=== PATIENT | male | born 1940 | race Caucasian/White ===

== ENCOUNTER 2018-04-07 15:14 | Inpatient (IN) | payer MEDICARE, MEDICAID ==
[~2018-04-07] VITALS: Ht 165.1 cm; Wt 67.7 kg
--- NOTE | ~2018-04-07 | DS ---
[place], [place] DISCHARGE SUMMARY NAME: DYAN OMER [facility] #: [id number] UNIT #: [id number] ROOM: 312 DOCTOR: YOJANA ASH MD BIRTHDATE: [birth year] DOS: 04/18/2018 CHIEF COMPLAINT: "My breakfast came late. I just got here about 5 days ago from [place]." HISTORY OF PRESENT ILLNESS: This is a 78-year-old white male who is known to me from his previous stay at [facility] in [place], [place]. The patient has had a significant and sudden alteration in mental status. Normally, he has been pleasantly confused, but within the last week or 2 prior to this admission, he has become increasingly verbally and physically aggressive, culminating in him putting his fist through a door. The patient has made threats to harm the nurses as well as other patients. He also wrapped a bowel movement in a napkin and gave it to his roommate. He has been urinating on the floor and in the radiators of the facility. Attempts to redirect him have only led to him becoming increasingly more combative. He is admitted now to rule out any organic factors in attempts to stabilize on medication. PAST MEDICAL HISTORY: Remarkable for normal pressure hydrocephalus, dementia and depression. ALLERGIES: He has no known allergies. SOCIAL HISTORY: He does not drink alcohol, use illicit drugs. He is a former cigarette smoker. FAMILY HISTORY: Both mother and father are , cause unknown. STRENGTHS: Good verbal skills, ambulatory. WEAKNESSES: Extreme confusion and poor coping skills. SUMMARY OF HOSPITAL COURSE: The patient was admitted to the unit where he was maintained on Namenda 10 mg b.i.d. Melatonin was discontinued and his Depakote was increased to 250 mg twice daily and 500 mg at bedtime, Remeron was maintained at 15 mg at bedtime. Namenda was augmented with Exelon patch 4.6 mg daily and this was rapidly titrated during his stay to its maximum dose of 13.3 mg daily. Risperdal 0.5 mg twice daily was given due to his severe agitation and mood lability as well as physical aggression. Risperdal was tolerated well without sedation, somnolence, extrapyramidal symptoms or tardive dyskinesia. The dose of the Risperdal was later increased to its maximum dose while he was here of 1 mg twice daily. With these medication changes in place, the patient did gradually improve. He remained pleasantly confused, but he was pleasant and redirectable. There were no further incidents of agitation or aggression. There is no mood lability. He tolerated the medicines well without sedation, somnolence, extrapyramidal symptoms or tardive dyskinesia and had improved sufficiently to be able to be returned back to [facility]. MENTAL STATUS AT DISCHARGE: The patient was alert and oriented to person, possibly place, although doubtful not to time. Mood does seem to be more euthymic. Affect appropriate. Speech rate and pattern were slow and [place], [place] DISCHARGE SUMMARY NAME: DYAN OMER [facility] #: [id number] UNIT #: [id number] ROOM: [facility] DOCTOR: YOJANA ASH MD BIRTHDATE: [birth year] deliberate. He lacks spontaneity. He remained grossly confused, but pleasantly so. Short-term memory was poor. 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 PLAN: All of his prescriptions have been printed and will be sent with him. He is medically and psychiatrically stable. I will follow him upon his readmission to [facility]. His biopsychosocial needs are adequately being met by the facility at large. YOJANA ASH MD CM:YADIRA 1012 1700 YOJANA ASH MD 04/28/18 0812 interface
--- NOTE | ~2018-04-07 | PN ---
[place], [place] PROGRESS NOTE NAME: DYAN OMER UNIT #: [id number] ROOM: 312 DOCTOR: YOJANA ASH MD BIRTHDATE: [birth year] DATE: 04/12/18 ADDENDUM 05/26/18935 DR. ASH: Above note reviewed. Agree with observations, recommendations, and overall treatment plan. YOJANA ASH MD CM:PNTRANS 5 YOJANA ASH MD 05/27/1832 ARMEN RICE MIS.LLR
--- NOTE | ~2018-04-07 | PN ---
[place], [place] PROGRESS NOTE NAME: DYAN OMER UNIT #: [id number] ROOM: 312 DOCTOR: YOJANA ASH MD BIRTHDATE: [birth year] DATE: 04/14/18 ADDENDUM 05/26/18935 DR. ASH: Above note reviewed. Agree with observations, recommendations, and overall treatment plan. YOJANA ASH MD CM:PNTRANS 5 YOJANA ASH MD 05/27/1833 ARMEN RICE MIS.LLR
--- NOTE | ~2018-04-07 | WRIGHTHP ---
[place], [place] PATIENT HISTORY AND PHYSICAL EXAM [id number] UN[facility] #: [id number] ROOM: 310 DOCTOR: YOJANA ASH MD BIRTHDATE: [birth year] DOS: 04/08/2018 CHIEF COMPLAINT: "My breakfast came late. I just got here about 5 days ago from [place]" HISTORY OF PRESENT ILLNESS: This is a 78-year-old white male known to me from his previous stay at [facility] in [place], [place]. The patient has had a sudden alteration in mental status. Normally, he has been pleasantly confused, but within the last week or 2 prior to this admission, he has become increasingly both verbally and physically aggressive, culminating in him putting his fist through a door. The patient has made threats to harm nurses as well as other patients. He also wrapped a bowel movement in a napkin and gave to his roommate. He has been urinating increasingly on the floor and in radiators at the facility. Attempts to redirect have only led to him becoming increasingly more combative with staff. He is admitted now to rule out further organic factors, to stabilize on medication, returning to the least restrictive environment when psychiatrically stable. PAST MEDICAL HISTORY: Very significant for a history of normal pressure hydrocephalus, dementia and depression. SOCIAL HISTORY: He does not drink alcohol. He does not use illicit drugs. He is a former cigarette smoker. FAMILY HISTORY: Both mother and father are , cause unknown. ALLERGIES: No known allergies. STRENGTHS: Good verbal skills, ambulatory. WEAKNESSES: Extreme confusion and poor coping skills. MENTAL STATUS: He is alert and oriented to person only. It is unclear if he realizes he is in the hospital. He is certainly not oriented to time stating that he has been here for 5 days and prior to this, he lived in [place], [place]. The patient was very disjointed in his thinking, having a hard time to formulate his thoughts. At times, he was able to form a full sentence. At other times, he would be derailed and fragmented. He was grossly delusional in his thinking. He was not agitated, although at times, he did seem a little bit on edge, but he self redirected. He does process information slowly and short term memory is quite problematic. DIAGNOSES: Major depression recurrent with psychotic features, intermittent explosive disorder and dementia, not otherwise specified. PLAN: I have maintained him on Namenda 10 mg b.i.d. I have discontinued his melatonin, increased his Depakote to 250 mg twice daily and 500 mg at bedtime, maintain his Remeron at 15 mg at bedtime. I will now augment the Namenda with Exelon patch 4.6 mg topically daily, targeting 13.3 mg a day and also add Risperdal 0.5 mg twice daily given the severity of his mood lability and [place], [place] PATIENT HISTORY AND PHYSICAL EXAM NAME: DYAN OMER UNIT #: [id number] ROOM: 310 DOCTOR: YOJANA ASH MD BIRTHDATE: [birth year] agitation. We will plan to check a valproic acid level early next week to determine if it is therapeutic. We will attempt to engage in individual and vera milieu activity determining then the least restrictive environment to which he can return post discharge. YOJANA ASH MD CM:HISPHYS:PATIENT HISTORY AND PHYSICAL EXAMINATION 1 YOJANA ASH MD 04/08/18 09 interface
--- NOTE | ~2018-04-07 | PN ---
[place], [place] PROGRESS NOTE NAME: DYAN OMER UNIT #: [id number] ROOM: 312 DOCTOR: YOJANA ASH MD BIRTHDATE: [birth year] DATE: 04/13/18 ADDENDUM 05/26/18935 DR. ASH: Above note reviewed. Agree with observations, recommendations, and overall treatment plan. YOJANA ASH MD CM:PNTRANS 5 YOJANA ASH MD 05/27/1832 ARMEN RICE MIS.LLR
--- NOTE | ~2018-04-07 | PR ---
[place], [place] PROGRESS NOTE [id number] UN[facility] #: [id number] ROOM: 312 DOCTOR: YOJANA ASH MD BIRTHDATE: [birth year] DOS: 04/15/2018 CHIEF COMPLAINT: "I would rather not go to breakfast now." SUMMARY OF THE VISIT: The patient was interviewed as he was resting on the bed that was not his own. He was lying in a position without covers on. As I engaged him, he reported he did not want to get up for breakfast. I did redirect stating that his bedroom was several rooms down where he could have sheets and covers and asked him if he would like to have assistance to go back to his room and he nodded in approval. Overall, his conversation with me today was rather pleasant. He offered no agitation or aggression and for the most part continues to be pleasantly confused. He does occasionally become somewhat resistive, but has been more and more redirectable. He outwardly is tolerating the current medication regimen well and I see no tardive dyskinesia, extrapyramidal symptoms, sedation or somnolence. MENTAL STATUS: He is alert and oriented to self, unclear if he knows place, it is very doubtful. He is certainly not oriented to time. Mood does seem to be relatively euthymic. Affect is more appropriate. There is no joesph, hypomania. There is no gross psychosis. Short term memory is very problematic. PLAN: I will go ahead and add Deplin to see if this could augment the effectiveness of his current medications by improving neurotransmitter synthesis. Otherwise, we will continue to engage him in individual and vera milieu activity with the ultimate plan to return back to [facility] when psychiatrically stable. YOJANA ASH MD CM:PNTRANS 08 143 YOJANA ASH MD 04/15/18 1430 interface
--- NOTE | ~2018-04-07 | PR ---
[place], [place] PROGRESS NOTE [id number] UN[facility] #: [id number] ROOM: 312 DOCTOR: MYRIAM FENG MD BIRTHDATE: [birth year] DOS: 04/15/2018 SUBJECTIVE: The patient seen and spoke with the staff. Per staff, the patient is doing fine. No behavior problems or issues. He is pleasantly confused. He is compliant with his medication. The patient was pleasant and cooperative. He was in his room on the bed, taking a nap. He got up when I called his name. He reports doing okay. He was confabulating. He was not in any distress. MENTAL STATUS EXAMINATION: Pleasant and cooperative. Described his mood as "okay." Affect, mood congruent. Thought processes with contemplation. He denied auditory or visual hallucination. No delusion or paranoia noted. He denied suicidal ideation, intent or plan. He also denied homicidal ideation, intent or plan. PLAN: 1. Continue current medication and care. 2. Continue redirection. 3. Supportive care. 4. Encourage activity in groups. MYRIAM FENG MD CM:PNTRANS [id number] MYRIAM FENG MD 04/17/18 1627 interface
--- NOTE | ~2018-04-07 | PR ---
[place], [place] PROGRESS NOTE NAME: DYAN OMER [facility] #: [id number] UNIT #: [id number] ROOM: 312 DOCTOR: MYRIAM FENG MD BIRTHDATE: [birth year] DOS: 04/17/2018 SUBJECTIVE: The patient seen and spoke with the staff. Per staff, the patient is doing well. No behavioral problems or issues. Taking his medication regularly. The patient was in his room. He was taking a nap. He woke up when I called his name. He reports doing good. He states that he is taking his medication regularly and did not have any side effect from the medication. MENTAL STATUS EXAMINATION: Pleasant, cooperative. Described his mood as "good." Affect, mood congruent. He denied auditory or visual hallucination. No delusion or paranoia noted. He denied suicidal ideation, intent, or plan. He also denied homicidal ideation, intent, or plan. PLAN: 1. Continue current medication and care. 2. Continue redirection and supportive care. 3. Encourage activities in groups. MYRIAM FENG MD CM:PNTRANS [id number] MYRIAM FENG MD 04/18/18 0531 interface
--- NOTE | ~2018-04-07 | PR ---
[place], [place] PROGRESS NOTE [id number] #: [id number] ROOM: 312 DOCTOR: YOJANA ASH MD BIRTHDATE: [birth year] DOS: 04/11/2018 INTERVAL NOTE CHIEF COMPLAINT: "Morning." SUMMARY OF THE VISIT: The patient was interviewed as he was resting in a Anai chair. He did awake with some difficulty and engaged in brief superficial conversation that was nonsensical at best. His responses did not always correspond to the question asked of him. There was no agitation or aggression, however. MENTAL STATUS: He is alert and oriented to self only. It is unclear if he realizes he is even in the hospital and he is certainly not oriented to time. Mood is still very labile. Affect is inappropriate. His responses are short, simple, nonsensical. There is no overt hypomania or joesph. There are no auditory or visual hallucinations. No delusions, no paranoia. Short term memory is very poor. PLAN: I will maximize out the dose of Exelon patch, bringing it from 9.5 to 13.3 mg a day. Given the extensive mood lability and agitation that is present, I will increase Risperdal M-Tab from 0.5 mg b.i.d. to 1 mg b.i.d. Maintain his current dose of Depakote as his level is therapeutic at 82.9. Engage in individual and vera milieu activity, returning to the least restrictive environment when psychiatrically stable. YOJANA ASH MD CM:PNTRANS YOJANA ASH MD 04/11/18 2148 interface
[2018-04-07] MEDS ORDERED: REMERON15 M2 PO (15:41)
[2018-04-07] MEDS ORDERED: DEPAKOTE250 MG PO (15:42)
[2018-04-07] MEDS ORDERED: NAMENDA10 MG PO (15:42)
[2018-04-07] MEDS ORDERED: MELATONIN3 MG PO (15:44)
[2018-04-07] MEDS ORDERED: NAMENDA-14 PO (15:44)
[2018-04-07 16:48] VITALS: BP 147/80
[2018-04-07 17:05] VITALS: BP 147/80
[2018-04-07 17:36] LABS: BASO % 0.6 % (0.0-1.0); EOS # 0.2 10*3/uL (0.0-0.4); EOS % 2.4 % (1.0-4.0); HEMATOCRIT 43.1 % (42.0-52.0); HEMOGLOBIN 13.7 g/dl (14.0-18.0); LYMPH # 1.7 10*3/uL (1.3-4.4); LYMPH % 24.5 % (27.0-41.0); MEAN CELL VOLUME 99.3 fl (80.0-94.0); MEAN CORPUSCULAR HGB 31.6 pg (27.0-31.0); MEAN CORPUSCULAR HGB CONC 31.8 g/dl (33.0-37.0); MEAN PLATELET VOLUME 10.8 fl (9.6-12.3); MONO # 0.8 10*3/uL (0.1-1.0); MONO % 11.5 % (3.0-9.0); NEUT # 4.1 10*3/uL (2.3-7.9); NEUT % 60.7 % (47.0-73.0); PLATELET COUNT AUTOMATED 193 10*3/uL (130-400); RED BLOOD COUNT 4.34 10*6/uL (4.50-5.90); WHITE BLOOD COUNT 6.8 10*3/uL (4.8-10.8)
[2018-04-07 17:51] LABS: ALBUMIN 3.8 gm/dl (3.1-4.5); ALKALINE PHOSPHATASE 86 U/L (45-117); BUN 24 mg/dl (7-24); CHLORIDE 106 mmol/L (98-107); CREATININE 1.08 mg/dL (0.70-1.30); PHOSPHOROUS 3.3 mg/dL (2.5-4.9); POTASSIUM 4.1 mmol/L (3.5-5.1); SGOT/AST 22 IU/L (3-35); SGPT/ALT 27 U/L (12-78); SODIUM 142 mmol/L (136-145)
[2018-04-07 20:49] VITALS: BP 147/80
[2018-04-08 07:29] VITALS: BP 143/90
[2018-04-08 09:57] LABS: BILIRUBIN NEGATIVE (NEGATIVE); BLOOD 2+ (NEGATIVE); CLARITY CLEAR (CLEAR); COLOR YELLOW (YELLOW); GLUCOSE NEGATIVE (NEGATIVE); KETONE NEGATIVE (NEGATIVE); LEUKO ESTERASE TRACE (NEGATIVE); NITRITE NEGATIVE (NEGATIVE); UROBILINOGEN 0.2 E.U./dl (0.2-1.0)
[2018-04-08 10:07] LABS: EPITHELIAL CELLS 0-2
[2018-04-08 19:20] VITALS: BP 143/86
[2018-04-09 07:39] VITALS: BP 147/76
[2018-04-09 20:16] VITALS: BP 146/80
[2018-04-10 07:41] VITALS: BP 133/64
[2018-04-10 20:00] VITALS: BP 126/82
[2018-04-11 08:28] VITALS: BP 128/74
[2018-04-11 19:56] VITALS: BP 119/82
[2018-04-12 10:13] LABS: BASO % 0.4 % (0.0-1.0); EOS # 0.1 10*3/uL (0.0-0.4); EOS % 1.1 % (1.0-4.0); HEMATOCRIT 45.9 % (42.0-52.0); HEMOGLOBIN 14.5 g/dl (14.0-18.0); LYMPH # 1.3 10*3/uL (1.3-4.4); LYMPH % 18.2 % (27.0-41.0); MEAN CELL VOLUME 98.7 fl (80.0-94.0); MEAN CORPUSCULAR HGB 31.2 pg (27.0-31.0); MEAN CORPUSCULAR HGB CONC 31.6 g/dl (33.0-37.0); MONO # 0.8 10*3/uL (0.1-1.0); MONO % 11.1 % (3.0-9.0); NEUT # 5.1 10*3/uL (2.3-7.9); NEUT % 68.9 % (47.0-73.0); PLATELET COUNT AUTOMATED 190 10*3/uL (130-400); RED BLOOD COUNT 4.65 10*6/uL (4.50-5.90); WHITE BLOOD COUNT 7.4 10*3/uL (4.8-10.8)
[2018-04-12 11:14] LABS: VITAMIN D, 25-HYDROXY 14.6 ng/mL (30-100)
[2018-04-12 11:42] LABS: ALBUMIN 3.9 gm/dl (3.1-4.5); ALKALINE PHOSPHATASE 83 U/L (45-117); BUN 23 mg/dl (7-24); CHLORIDE 109 mmol/L (98-107); CREATININE 0.96 mg/dL (0.70-1.30); POTASSIUM 3.9 mmol/L (3.5-5.1); SGOT/AST 12 IU/L (3-35); SGPT/ALT 20 U/L (12-78); SODIUM 146 mmol/L (136-145); TOTAL PROTEIN 7.6 gm/dL (6.4-8.2)
[2018-04-12 20:13] VITALS: BP 145/80
[2018-04-13 07:54] VITALS: BP 126/72
[2018-04-13 20:08] VITALS: BP 131/75
[2018-04-14 07:21] VITALS: BP 110/71
[2018-04-14 20:00] VITALS: BP 119/62
[2018-04-15 08:09] VITALS: BP 122/58
[2018-04-15 19:42] VITALS: BP 111/79
[2018-04-16 07:43] VITALS: BP 121/68
[2018-04-16 20:09] VITALS: BP 119/71
[2018-04-17 07:27] VITALS: BP 118/70
[2018-04-17 20:44] VITALS: BP 113/69
[2018-04-18 07:50] VITALS: BP 121/73
[2018-04-18] MEDS ORDERED: VITAMIN D5000 UNI1 PO (10:05)
[2018-04-18] MEDS ORDERED: EXELON13.3 MG/21 T (10:05)
[2018-04-18] MEDS ORDERED: MEMANTINE HCL10 MG PO (10:05)
[2018-04-18] MEDS ORDERED: RISPERIDONE M-TA1 MG BC (10:05)
[2018-04-18] MEDS ORDERED: MIRTAZAPINE15 M2 PO (10:05)
[2018-04-18] MEDS ORDERED: DIVALPROEX SOD125 M1 PO ×2 (10:05)
== END 2018-04-18 14:13 | DRG 883 ==
LOC: 3N 15:14
PROVIDERS: Family Medicine; Psychiatry & Neurology Psychiatry
DX: F63.81 Intermittent explosive disorder (principal); G91.2 (Idiopathic) normal pressure hydrocephalus; F33.3 Major depressive disorder, recurrent, severe with psychotic symptoms; G30.9 Alzheimer's disease, unspecified; F02.81 Dementia in other diseases classified elsewhere, unspecified severity, with behavioral disturbance; F23 Brief psychotic disorder; Z79.899 Other long term (current) drug therapy; Z87.891 Personal history of nicotine dependence

== ENCOUNTER 2018-06-02 12:59 | Inpatient (IN) | payer MEDICARE, MEDICAID ==
[~2018-06-02] VITALS: Ht 172.7 cm; Wt 71.4 kg
--- NOTE | ~2018-06-02 | PR ---
[place], [place] PROGRESS NOTE [id number] #: [id number] ROOM: 309 DOCTOR: MYRIAM FENG MD BIRTHDATE: [birth year] DOS: 06/05/2018 PSYCHIATRIC PROGRESS NOTE SUBJECTIVE: The patient was seen and spoke with the staff. Per staff, the patient is very sedated, not eating well and no behavior problems or issues. The patient was in the day area on the Anai chair. He said that he is doing good "but then started mumbling, not able to understand or make anything out of it." MENTAL STATUS EXAMINATION: The patient was pleasant and cooperative. He was sedated. He reports doing "good." Affect was sleepy, tired. Thought process is with confabulation. He denied auditory or visual hallucination. No delusion or paranoia noted. He denied suicidal ideation, intent or plan. He also denied any homicidal ideation, intent or plan. PLAN: 1. I will reduce his Depakote to 500 mg p.o. b.i.d. 2. Continue redirection. 3. Supportive care. 4. Encourage activities in groups. MYRIAM FENG MD CM:PNTRANS 2224 MYRIAM FENG MD 06/06/185 interface
--- NOTE | ~2018-06-02 | PR ---
[place], [place] PROGRESS NOTE [id number] #: [id number] ROOM: 309 DOCTOR: YOJANA ASH MD BIRTHDATE: [birth year] DOS: 06/06/2018 CHIEF COMPLAINT: The patient was somnolent. SUMMARY OF THE VISIT: The patient was resting quietly in his Anai chair in the group therapy room. He did open his eyes as I approached him, but then closed them without speaking. He was not combative in anyway. Nurses report that after having a rather bad Wednesday he seemed to settle in yesterday and had a much more pleasant day. He engaged more readily in activities and was less agitated and seemed to be more overall engaging. MENTAL STATUS: He is at least alert to self. Mental status is limited due to his level of somnolence. PLAN: Dr. Mcelroy has already lowered the Depakote with a valproic acid level high therapeutic at 90.7. I will switch around his Seroquel from 50 mg 3 times a day to 50 mg in the morning and 100 mg at night in an effort to lessen the possibility of somnolence during the day. We will engage in individual and vera milieu activity with the plan to return to the least restrictive environment when psychiatrically stable. ADDENDUM: Above note reviewed. Agree with observations, recommendations, and overall treatment plan. YOJANA ASH MD CM:PNTRANS 1003 1205 YOJANA ASH MD 06/19/18 1126 interface
--- NOTE | ~2018-06-02 | PN ---
[place], [place] PROGRESS NOTE NAME: DYAN OMER UNIT #: [id number] ROOM: 309 DOCTOR: YOJANA ASH MD BIRTHDATE: [birth year] DATE: 06/07/18 ADDENDUM 06/18/18825 DR. ASH: Above note reviewed. Agree with observations, recommendations, and overall treatment plan. YOJANA ASH MD CM:PNTRANS 5 100 YOJANA ASH MD 06/27/18 1006 ARMEN RICE MIS.LLR
--- NOTE | ~2018-06-02 | DS ---
[place], [place] DISCHARGE SUMMARY NAME: DYAN OMER [facility] #: [id number] UNIT #: [id number] ROOM: 309 DOCTOR: YOJANA ASH MD BIRTHDATE: [birth year] DOS: 06/09/2018 CHIEF COMPLAINT: "Oh good morning this." HISTORY OF PRESENT ILLNESS: This is a 78-year-old white male who is a resident of [facility] in [place], [place]. The patient is now readmitted to the [facility] at [facility] due to an escalation in his verbal and physical aggression. The patient had to return there following a recent hospitalization and was doing extremely well for at least 2 weeks before he began to decompensate again. During this period of time, he is becoming intermittently explosive. He has attacked both peers and staff. Attempts to redirect have met with him becoming increasingly more agitated and aggressive. Given the fact that he is putting himself and others at significant risk for harm he was readmitted to the U to rule out further organic factors and to stabilize on medication determining the least restrictive environment to which he could be returned to. SUMMARY OF HOSPITAL COURSE: The patient was admitted where he was maintained on his doses of rivastigmine and Namenda, both of which had reached their maximum. The patient had presented on Risperdal, but has a significant history of Parkinson's disease. Given the fact that the Risperdal has strong parkinsonian symptoms, it was discontinued in lieu of Seroquel 50 mg 3 times daily to help decrease his mood lability. This had a very dramatic improvement on his behavior; however, the dosing did tend to cause some daytime somnolence, so it was eventually changed to 50 mg in the morning and 100 mg at night with good results. The patient was able to sleep through the night. He did wake up and engage in activities. He was able to eat his breakfast and lunch. He was not exhibiting any type of mood lability, aggression or hostility. He also was not exhibiting sedation, somnolence, extrapyramidal symptoms or tardive dyskinesia. MENTAL STATUS AT DISCHARGE: He was alert and oriented to person, possibly place, not to time. Mood was strongly trending towards euthymia. Affect was appropriate. There is no joesph, hypomania or psychosis. Short term memory continued to be problematic. Otherwise, he was intact. FINAL DIAGNOSES: Intermittent explosive disorder and Alzheimer's dementia. DISPOSITION: His prescriptions have been e-scribed to [facility] pharmacy. I will be the treating psychiatrist of record upon his return to [facility]. [place], [place] DISCHARGE SUMMARY NAME: DYAN OMER UNIT #: [id number] ROOM: 309 DOCTOR: YOJANA ASH MD BIRTHDATE: [birth year] YOJANA ASH MD CM:YADIRA 1205 1323 YOJANA ASH MD 06/09/18 1321 interface
--- NOTE | ~2018-06-02 | WRIGHTHP ---
[place], [place] PATIENT HISTORY AND PHYSICAL EXAM NAME: DYAN OMER [facility] #: [id number] UNIT #: [id number] ROOM: 309 DOCTOR: YOJANA ASH MD BIRTHDATE: [birth year] DOS: 06/03/2018 CHIEF COMPLAINT: "Oh, good morning this" HISTORY OF PRESENT ILLNESS: This is a 78-year-old white male who is a resident of [facility] [place], [place]. The patient is readmitted to the [facility] care unit at [facility] due to an escalation in his verbal and physical aggression. The patient had returned there following a recent hospitalization and was doing extremely well until the last 2 weeks prior to this admission. During this period of time, the patient has become intermittently explosive and has attacked other peers and staff. Attempts to redirect only met with him becoming increasingly more agitated and aggressive. He has put himself and others at significant risk of self-harm and is readmitted to rule out organic factors in an attempt to re-stabilize on medication. The patient does have a past medical history remarkable for normal pressure hydrocephalus and Parkinson's disease. SOCIAL HISTORY: He does not drink alcohol. He is a former cigarette smoker. He has never used any illicit drugs nor has he used smokeless tobacco products. STRENGTHS: Ambulatory, good verbal skills. WEAKNESSES: Significant medical issues and poor coping skills. MENTAL STATUS: He is alert and oriented to self only. Mood for the most part seemed to be rather blunted. This may be because of his parkinsonian symptoms. He was pleasant and cooperative during my initial evaluation of him. Nurses did report that last night he did sundown and became increasingly agitated. I did not see the presence of any auditory or visual hallucinations during my evaluation nor were there any delusions or paranoia. Memory for the most part for short-term events is poor and his responses tended to be short and simple. DIAGNOSES: Intermittent explosive disorder and dementia, not otherwise specified. PLAN: I have maintained him on his rivastigmine and Namenda. I will discontinue the Risperdal due to ineffectiveness and start him on Seroquel 50 mg t.i.d. to decrease his mood lability. Engage in individual and vera milieu activity with the plan to return back to [facility] when psychiatrically stable. [place], [place] PATIENT HISTORY AND PHYSICAL EXAM NAME: DYAN OMER UNIT #: [id number] ROOM: 309 DOCTOR: OYJANA ASH MD BIRTHDATE: [birth year] YOJANA ASH MD CM:HISPHYS:PATIENT HISTORY AND PHYSICAL EXAMINATION 0829 0910 YOJANA ASH MD 06/10/18 1014 interface
--- NOTE | ~2018-06-02 | PR ---
[place], [place] PROGRESS NOTE NAME: DYAN OMER [facility] #: [id number] UNIT #: [id number] ROOM: 309 DOCTOR: MYRIAM FENG MD BIRTHDATE: [birth year] DOS: 06/04/2018 PSYCHIATRIC PROGRESS NOTE SUBJECTIVE: The patient seen and spoke with the staff. Per staff, the patient got Ativan twice yesterday, very restless and confused, hard to redirect. As per staff, he did not sleep last night, seems to be internally stimulated. He took his medication and did not have any side effect from the medication also. The patient was in the day area on a Anai chair. I was not able to wake him up. He just mumbled when I called his name. He really was not in any acute distress. MENTAL STATUS EXAMINATION: The patient was sleepy and sedated as he received stat medication yesterday. He was not in any acute distress. I am not able to do the full mental status examination as he was sedated. PLAN: 1. Continue current medication and care. 2. Continue redirection. 3. Supportive care. MYRIAM FENG MD CM:PNTRANS 1854 0157 MYRIAM FENG MD 06/05/18 0154 interface
[~2018-06-02 12:59] MED LIST: DEPAKOTE250 MG PO; DIVALPROEX SOD125 M1 PO; EXELON13.3 MG/21 T; MELATONIN3 MG PO; MEMANTINE HCL10 MG PO; MIRTAZAPINE15 M2 PO; NAMENDA-14 PO; NAMENDA10 MG PO; REMERON15 M2 PO; RISPERIDONE M-TA1 MG BC; VITAMIN D5000 UNI1 PO
[2018-06-02] MEDS ORDERED: DEPAKOTE SPRIN125 M1 PO (15:38)
[2018-06-02] MEDS ORDERED: MELATONIN3 MG PO (15:39)
[2018-06-02] MEDS ORDERED: CELEXA10 MG PO (15:40)
[2018-06-02] MEDS ORDERED: VITAMIN D5000 UNI1 PO (15:40)
[2018-06-02 17:00] VITALS: BP 112/62
[2018-06-02 19:56] VITALS: BP 138/92
[2018-06-02 20:53] LABS: BASO % 0.8 % (0.0-1.0); EOS # 0.2 10*3/uL (0.0-0.4); EOS % 4.4 % (1.0-4.0); HEMATOCRIT 39.7 % (42.0-52.0); HEMOGLOBIN 12.8 g/dl (14.0-18.0); LYMPH # 1.2 10*3/uL (1.3-4.4); LYMPH % 23.6 % (27.0-41.0); MEAN CELL VOLUME 101.3 fl (80.0-94.0); MEAN CORPUSCULAR HGB 32.7 pg (27.0-31.0); MEAN CORPUSCULAR HGB CONC 32.2 g/dl (33.0-37.0); MONO # 0.7 10*3/uL (0.1-1.0); MONO % 14.6 % (3.0-9.0); NEUT # 2.8 10*3/uL (2.3-7.9); PLATELET COUNT AUTOMATED 136 10*3/uL (130-400); RED BLOOD COUNT 3.92 10*6/uL (4.50-5.90); RED CELL DISTRI WIDTH 14.2 % (0-14.5)
[2018-06-02 21:11] LABS: ALBUMIN 3.1 gm/dl (3.1-4.5); ALKALINE PHOSPHATASE 87 U/L (45-117); BUN 33 mg/dl (7-24); CHLORIDE 107 mmol/L (98-107); CREATININE 1.21 mg/dL (0.70-1.30); POTASSIUM 4.2 mmol/L (3.5-5.1); SGOT/AST 15 IU/L (3-35); SGPT/ALT 18 U/L (12-78); SODIUM 144 mmol/L (136-145); TOTAL PROTEIN 6.1 gm/dL (6.4-8.2)
[2018-06-02 21:34] LABS: BILIRUBIN NEGATIVE (NEGATIVE); BLOOD 1+ (NEGATIVE); CLARITY CLEAR (CLEAR); COLOR YELLOW (YELLOW); GLUCOSE NEGATIVE (NEGATIVE); KETONE NEGATIVE (NEGATIVE); LEUKO ESTERASE NEGATIVE (NEGATIVE); NITRITE NEGATIVE (NEGATIVE); SPECIFIC GRAVITY 1.015 (1.005-1.030)
[2018-06-02 21:43] LABS: VITAMIN D, 25-HYDROXY 48.8 ng/mL (30-100)
[2018-06-02 21:49] LABS: BACTERIA TRACE; RBC 16-20 rbc/hpf (0-2)
[2018-06-03 07:55] VITALS: BP 128/81
[2018-06-03 20:04] VITALS: BP 129/77
[2018-06-04 06:42] VITALS: BP 143/64
[2018-06-04 07:00] LABS: CHOLESTEROL 162 mg/dL (<200); HDL CHOLESTEROL 59 mg/dl (40-60); LDL CHOLESTEROL 96 mg/dL (9-159); TRIGLYCERIDES 37 mg/dl (<150); VLDL CHOLESTEROL 7 mg/dL (6-40)
[2018-06-04 20:02] VITALS: BP 143/77
[2018-06-04 20:05] VITALS: BP 143/77
[2018-06-05 07:41] VITALS: BP 133/69
[2018-06-05 19:42] VITALS: BP 148/81
[2018-06-06 07:48] VITALS: BP 103/60
[2018-06-06 20:16] VITALS: BP 106/69
[2018-06-07 07:12] VITALS: BP 126/89
[2018-06-07 19:52] VITALS: BP 128/69
[2018-06-08 07:20] VITALS: BP 122/68
[2018-06-08 19:48] VITALS: BP 135/69
[2018-06-09 08:01] VITALS: BP 127/69
[2018-06-09] MEDS ORDERED: CITALOPRAM20 MG PO (11:44)
[2018-06-09] MEDS ORDERED: QUETIAPINE FUM100 M3 PO (11:44)
[2018-06-09] MEDS ORDERED: MEMANTINE HCL10 MG PO (11:44)
[2018-06-09] MEDS ORDERED: EXELON13.3 MG/21 T (11:44)
[2018-06-09] MEDS ORDERED: DIVALPROEX SOD125 M1 PO (11:44)
[2018-06-09] MEDS ORDERED: Vitamin D PO (11:45)
[2018-06-09] MEDS ORDERED: FLOMAX0.4 MG PO (12:44)
== END 2018-06-09 14:10 | disposition other institution (70) | DRG 883 ==
LOC: 3N 12:59
PROVIDERS: Psychiatry & Neurology Psychiatry
DX: F63.81 Intermittent explosive disorder (principal); F23 Brief psychotic disorder; F02.81 Dementia in other diseases classified elsewhere, unspecified severity, with behavioral disturbance; F32.9 Major depressive disorder, single episode, unspecified; G30.9 Alzheimer's disease, unspecified; M62.81 Muscle weakness (generalized); E55.9 Vitamin D deficiency, unspecified; G20 Parkinson's disease; Z79.899 Other long term (current) drug therapy